=== PATIENT | male | born 1975 | race Caucasian/White ===

== ENCOUNTER 2022-09-29 18:02 | Emergency (ER) | payer BC, SELFPAY ==
[2022-09-29 18:11] VITALS: BP 157/103; PULSE 98; RESP 18; TEMP 37.5; O2SAT 98; BMI 35.6
--- NOTE | 2022-09-29 18:40 | XR_ITS ---
The [address] [address] Patient Name: REKHA CHAPARRO MRN: [id number] date: 1975 Sex: M Assigned Patient Location: ER Current Patient Location: ER Accession/Order Number: [id number] Exam Date: 09/29/2022 18:40 Report Date: 09/29/2022 19:26 At the request of: ETHAN CHAMORRO Procedure: XR foot RT min 3V IMAGES REVIEWED: XR foot RT min 3V COMPARISON: None available. CLINICAL INDICATION: pain FINDINGS/IMPRESSION: No evidence of acute osseous abnormality of the right foot. Accessory navicular. Minimal enthesopathic change at the distal Achilles tendon insertion. Electronically authenticated by: BROCK DEVI Date: 09/29/2022 19:26
[2022-09-29 18:43] VITALS: PULSE 98
--- NOTE | 2022-09-29 19:34 | ED_ITS ---
HPI - Extremity Injury (Lower) General Chief Complaint: Extremity Injury, Lower Stated Complaint: FOOT PAIN Time Seen by Provider: 09/29/22 19:33 Source: patient Mode of arrival: Wheelchair Limitations: no limitations History of Present Illness HPI Narrative: presents complaining of right foot pain for past couple of nights. Not aware of any injury. Has tried soaking his foot without any benefit. Increased pain even with attempts at ROM of the ankle/foot. No fever or numbness Related Data Home Medications Medication Instructions Recorded Confirmed No Known Home Medications 09/29/22 09/29/22 Allergies Allergy/AdvReac Type Severity Reaction Status Date / Time Penicillins Allergy Rash Verified 09/29/22 18:14 Review of Systems ROS Status of ROS 10 or more systems reviewed and unremarkable except as noted in history and below [facility] Social History Smoking status: Current every day smoker Exam Constitutional Vital Signs - 24 hr 09/29/22 18:11 09/29/22 18:43 Temperature 99.5 F Pulse Rate [Monitor] 98 H 98 H Respiratory Rate 18 Blood Pressure [Left Arm] 157/103 H Pulse Oximetry 98 Oxygen Delivery Method Room Air Common normals: no apparent distress, oriented x3, no limitations and well nourished HENMT Common normals: normocephalic and head/scalp atraumatic Eye Common normals: EOMs intact bilaterally and conjunctivae normal Respiratory Common normals: normal respiratory effort, no retractions and no use of accessory muscles Cardio Common normals: regular rate and regular rhythm GI Common normals: Normal to inspection, nondistended, normoactive bowel sounds present Back & Pelvis Common normals: thoracic and lumbar spine normal to inspection and no thoracic nor lumbar tenderness Extremity Other: right lat. malleolus tender. entire dorsum right oven drier tender. No swelling , erythema or warmth Neuro Common normals: oriented x3, moves all extremities, no focal motor deficits and no sensory deficits noted Psych Appearance: grossly normal Course Vital Signs Vital signs: Vital Signs Temperature 99.5 F 09/29/22 18:11 Pulse Rate 98 H 09/29/22 18:11 Respiratory Rate 18 09/29/22 18:11 Blood Pressure 157/103 H 09/29/22 18:11 Pulse Oximetry 98 09/29/22 18:11 Oxygen Delivery Method Room Air 09/29/22 18:11 Temperature 99.5 F 09/29/22 18:11 Pulse Rate 98 H 09/29/22 18:43 Respiratory Rate 18 09/29/22 18:11 Blood Pressure 157/103 H 09/29/22 18:11 Pulse Oximetry 98 09/29/22 18:11 Oxygen Delivery Method Room Air 09/29/22 18:11 MDM - Extremity Injury (Lower) MDM Narrative Medical decision making narrative: presents with acute right foot pain. No reported injury. xray neg for acute finding. labs unremarkable including normal CBC. Patient treated in the department with Toradol and solumedrol and dischaged home with diagnosis of actue arthralgia right ankle and foot. Advised to follow up with his doctor for recheck Discharge Plan Discharge Chief Complaint: Extremity Injury, Lower Clinical Impression: Acute joint pain Mode of Transportation: Private Vehicle Prescriptions / Home Meds: No Action No Known Home Medications Instructions: Arthralgia (ED) Stand Alone Forms: Portal Instructions Referrals: Physician,Non-Staff, MD [Primary Care Provider] - 1 week Follow Up Appointments: follow up with your family doctor in the next 2-3 days
[2022-09-29 19:52] LABS: Basophils Absolute Auto 0.1 10^3/uL (0.0-0.1); Basophils Percent Auto 0.9 % (0.2-2.0); Eosinophils Absolute Auto 0.2 10^3/uL (0.0-0.7); Eosinophils Percent Auto 2.2 % (0.9-7.0); Hematocrit 42.1 % (42.0-54.0); Hemoglobin 14.6 g/dL (14.0-18.0); Immature Granulocytes Abs Auto 0.03 10^3/uL (0.00-0.03); Immature Granulocytes Pct Auto 0.3 % (0.0-0.5); Lymphocytes Absolute Auto 2.5 10^3/uL (1.2-3.8); Lymphocytes Percent Auto 29.1 % (20.5-60.0); Mean Corpuscular HGB Conc 34.7 g/dL (29.9-35.2); Mean Corpuscular Hemoglobin 31.1 pg (25.9-34.0); Mean Corpuscular Volume 89.8 fL (80.0-94.0); Mean Platelet Volume 8.8 fL (9.5-13.5); Monocytes Absolute Auto 0.7 10^3/uL (0.3-0.8); Monocytes Percent Auto 7.6 % (1.7-12.0); Neutrophils Absolute Auto 5.2 10^3/uL (1.4-6.5); Neutrophils Percent Auto 59.9 % (43.0-75.0); Platelet Count 218 10^3/uL (150-450); Red Blood Count 4.69 10^6/uL (4.70-6.10); Red Cell Distribution Width 12.7 % (11.0-15.0); White Blood Count 8.6 10^3/uL (4.0-11.0)
[2022-09-29] MEDS: METHYLPREDNISOLONE SOD SUCC PF 125 MG/2 ML VIAL IVP (19:53)
[2022-09-29] MEDS: KETOROLAC TROMETHAMINE 30 MG/ML VIAL IVP (19:53)
[2022-09-29 20:03] LABS: Anion Gap 13.8; BUN Creatinine Ratio 20.4; C Reactive Protein 0.4 mg/dL (<=1.0); Carbon Dioxide 26.6 mmol/L (21.0-32.0); Chloride 101 mmol/L (98-107); Estimated GFR (African America >60 (>=60); Estimated GFR (Non-African Ame >60 (>=60); Glucose 119 mg/dL (74-106); Potassium 4.4 mmol/L (3.5-5.1); Sodium 137 mmol/L (136-145); Uric Acid 6.5 mg/dL (3.5-7.2)
[2022-09-29] MEDS: PREDNISONE 20 MG TABLET 40 MG PO (21:17)
== END 2022-09-29 21:28 | disposition home or self-care (01) ==
PROVIDERS: Emergency Provider Internal Medicine
DX: M79.671 Pain in right foot (principal); F17.210 Nicotine dependence, cigarettes, uncomplicated
CPT/HCPCS: 36415; 73630; 80048; 84550; 85025; 86140; 96374; 96375; 99285; J2930